=== PATIENT | male | born 1995 | race Hispanic/Latino ===

== ENCOUNTER 2023-03-27 09:58 | Emergency (ER) | payer SELFPAY ==
[~2023-03-27] VITALS: Ht 172.7 cm; Wt 147.0 kg
[2023-03-27 10:07] VITALS: O2SAT 100
[2023-03-27] MEDS ORDERED: ULTRAM 50MG50 MG PO (10:20)
[2023-03-27] MEDS ORDERED: BACTRIM DS TAB1 EACH PO (10:20)
== END 2023-03-27 11:43 | disposition home or self-care (01) ==
LOC: ER 10:09
DX: R50.9 Fever, unspecified (principal); L02.212 Cutaneous abscess of back [any part, except buttock and flank]; I10 Essential (primary) hypertension; R73.03 Prediabetes
CPT/HCPCS: 99282

== ENCOUNTER 2024-11-20 10:10 | Emergency (ER) | payer OTHER ==
[~2024-11-20] VITALS: Ht 172.7 cm; Wt 147.0 kg
[~2024-11-20 10:10] MED LIST: BACTRIM DS TAB1 EACH PO; ULTRAM 50MG50 MG PO
[2024-11-20 10:18] VITALS: TEMP 98.3
[2024-11-20 13:33] VITALS: PULSE 63; RESP 15; O2SAT 100
== END 2024-11-20 13:39 | disposition home or self-care (01) ==
LOC: ER 10:18
DX: L98.9 Disorder of the skin and subcutaneous tissue, unspecified (principal); I10 Essential (primary) hypertension; E11.9 Type 2 diabetes mellitus without complications; E78.5 Hyperlipidemia, unspecified
CPT/HCPCS: 70450; 99284